=== PATIENT | male | born 1950 | race Caucasian/White ===

== ENCOUNTER 2020-07-07 09:13 | Emergency (ER) | payer OTHER, BC ==
[~2020-07-07] VITALS: Ht 185.4 cm; Wt 104.3 kg
[~2020-07-07 09:13] MED LIST: VALS1TAB6 PO
[2020-07-07 09:15] VITALS: BP_SYST 170
[2020-07-07] MEDS ORDERED: NACL 0.9% 1,000 ML IV ONE (10:00)
[2020-07-07] MEDS ORDERED: ONDANSETRON HCL 4 MG/2 ML VIAL IVP ONE (10:00)
[2020-07-07 10:04] LABS: BASOPHILS % (AUTO) 0.8 % (0.0-2.0); EOSINOPHILS # (AUTO) 0.2 K/uL (0.0-0.4); EOSINOPHILS % (AUTO) 3.2 % (0.0-4.0); HEMATOCRIT 45.9 % (36-54); HEMOGLOBIN 15.8 g/dL (14.0-18.0); LYMPHOCYTES # (AUTO) 1.8 K/uL (1.0-5.5); LYMPHOCYTES % (AUTO) 30.6 % (20.5-51.5); MEAN CORPUSCULAR HEMOGLOBIN 30 pg (27-31); MEAN CORPUSCULAR HGB CONC 34 % (32-36); MEAN CORPUSCULAR VOLUME 88 fL (79.0-98.0); MONOCYTES # (AUTO) 0.4 K/uL (0.0-1.0); MONOCYTES % (AUTO) 6.6 % (1.7-9.3); NEUTROPHILS # (AUTO) 3.5 K/uL (1.8-7.7); NEUTROPHILS % (AUTO) 58.8 % (40.0-70.0); PLATELET COUNT (AUTO) 137 K/uL (130-430); RED BLOOD CELL COUNT(AUTO) 5.24 MIL/uL (4.2-6.2)
[2020-07-07 10:21] LABS: CREATININE 0.89 mg/dL (0.55-1.30); POTASSIUM 4.1 mmol/L (3.5-5.1)
[2020-07-07 10:27] LABS: ALBUMIN 4.2 g/dL (3.4-4.8)
[2020-07-07 11:34] VITALS: BP_SYST 162
== END 2020-07-07 11:34 | disposition home or self-care (01) ==
LOC: SED 09:13
DX: R27.0 Ataxia, unspecified (principal); I10 Essential (primary) hypertension
CPT/HCPCS: 36415; 70450; 71045; 76376; 80053; 84484; 85025; 93005; 96361; 96374; 99285; J2405; J7030

== ENCOUNTER 2023-05-25 09:15 | Emergency (ER) | payer OTHER, BC ==
[~2023-05-25] VITALS: Ht 185.4 cm; Wt 106.6 kg
[2023-05-25 09:30] VITALS: BP_SYST 151; PULSE 77; RESP 22; TEMP 98.3; O2SAT 97
[2023-05-25 09:56] VITALS: BP_SYST 145; PULSE 74; RESP 12; O2SAT 96
[2023-05-25] MEDS ORDERED: ZIT250 PO (10:00)
[2023-05-25] MEDS ORDERED: BROM118S61 PO (10:00)
== END 2023-05-25 10:11 | disposition home or self-care (01) ==
LOC: SED 09:15
DX: J06.9 Acute upper respiratory infection, unspecified (principal); R05.9 Cough, unspecified; R09.81 Nasal congestion; I10 Essential (primary) hypertension; Z79.899 Other long term (current) drug therapy
CPT/HCPCS: 71045; 99283